=== PATIENT | male | born 1960 | race Hispanic/Latino ===

== ENCOUNTER 2018-08-29 02:53 | Emergency (ER) | payer SELFPAY ==
[~2018-08-29] VITALS: Ht 175.3 cm; Wt 138.3 kg
[2018-08-29] MEDS ORDERED: CLINDAMYCIN 600MG / 50ML 50 ML IV ONE (03:30)
[2018-08-29] MEDS ORDERED: HYDROCODONE/APAP 5MG-325MG TAB PO ONE (04:00)
--- NOTE | 2018-08-29 04:23 | Diagnostic Imaging Report ---
Exam: 2 views of the left tibia and fibula Indication: Swollen left calf, fevers, using Comparison: None Findings: Left tibial intramedullary regina with proximal and distal screws stabilizing a chronic fracture of the distal tibia. There is abnormal lucency and periosteal reaction of the tibia. Chronic fracture of the distal fibula. No acute fractures. Soft tissue swelling of the calf. Vascular clips posterior mid calf. Impression: Chronic fracture of the left distal tibia stabilized with intramedullary regina. Appearance of the tibia suggests chronic osteomyelitis. If there are no prior images available for comparison, a nuclear medicine tagged wbc scan may provide help in diagnosis as clinically indicated. Signed by: Dr. Kimmie Meadows M.D. on 08/29/2018 4:19 AM
--- NOTE | 2018-08-29 05:23 | Diagnostic Imaging Report ---
EXAM: Left lower extremity venous Doppler INDICATION: Left calf pain, skin infection COMPARISON: None TECHNIQUE: Livingston scale, color Doppler and spectral waveform analysis of the left lower extremity deep venous system was performed. FINDINGS: LEFT LOWER EXTREMITY: Normal waveform response to augmentation. Common Femoral: Fully compressible with normal spontaneous waveforms. Femoral: Fully compressible with normal spontaneous waveforms. Proximal Greater Saphenous: Not evaluated Proximal Profunda (Deep Femoral): Not evaluated Popliteal: Fully compressible with normal spontaneous waveforms. IMPRESSION: No evidence of deep venous thrombosis above the left calf. Limited evaluation of below the calf vessels secondary to edema. Signed by: Dr. Kimmie Meadows M.D. on 08/29/2018 5:20 AM
== END 2018-08-29 06:04 | disposition left against medical advice (07) ==
LOC: FSED 02:53
DX: L03.116 Cellulitis of left lower limb (principal)
CPT/HCPCS: 80053; 85025; 87040; 93971; 99284